=== PATIENT | male | born 1985 | race Caucasian/White ===

== ENCOUNTER 2017-03-19 10:31 | Emergency (ER) | payer OTHER ==
[~2017-03-19] VITALS: Ht 182.9 cm; Wt 107.0 kg
[2017-03-19 10:32] VITALS: BP 148/74
[2017-03-19] MEDS ORDERED: PLEASE ENTER ALLERGIES MC SCH ×2 (12:00)
[2017-03-19] MEDS ORDERED: DIAZEPAM 5 MG TABLET PO ONE (12:00)
[2017-03-19] MEDS ORDERED: OXYcodone/APAP 5/325MG TABLET PO ONE (12:00)
[2017-03-19] MEDS ORDERED: OXYcodone/APAP 5/325MG TABLET ONE (12:14)
[2017-03-19] MEDS ORDERED: DIAZEPAM 5 MG TABLET ONE (12:14)
== END 2017-03-19 13:24 | disposition home or self-care (01) ==
LOC: ED 13:18
DX: S09.90XA Unspecified injury of head, initial encounter (principal); S40.011A Contusion of right shoulder, initial encounter; S60.211A Contusion of right wrist, initial encounter; V22.9XXA Unspecified motorcycle rider injured in collision with two- or three-wheeled motor vehicle in traffic accident, initial encounter; Y93.89 Activity, other specified; Y92.410 Unspecified street and highway as the place of occurrence of the external cause; Y99.8 Other external cause status
CPT/HCPCS: 70450